=== PATIENT | female | born 1985 | race Caucasian/White ===

== ENCOUNTER 2017-07-31 12:27 | Emergency (ER) | payer BC ==
[~2017-07-31] VITALS: Ht 172.7 cm; Wt 78.5 kg
[~2017-07-31 12:27] MED LIST: AZITHROMYCIN250 MG PO; IBUPROFEN IB200 MG PO; NAPROSYN500 MG PO; NORCO 5-325 TA1 EACH PO; POTASSIUM CHLO20 ME1 PO; TYLENOL325 MG PO
[2017-07-31] MEDS ORDERED: KEFLEX500 MG PO (13:59)
[2017-07-31] MEDS ORDERED: NORCO 10-325 T1 EACH PO (13:59)
== END 2017-07-31 14:18 | disposition home or self-care (01) ==
LOC: ED 12:27
PROC: 2W3CX1Z Immobilization of Right Lower Arm using Splint (ICD-10-PCS; principal; 2017-07-31)
DX: S62.304A Unspecified fracture of fourth metacarpal bone, right hand, initial encounter for closed fracture (principal); S01.511A Laceration without foreign body of lip, initial encounter; F17.200 Nicotine dependence, unspecified, uncomplicated; Z98.84 Bariatric surgery status; Z98.890 Other specified postprocedural states; V89.2XXA Person injured in unspecified motor-vehicle accident, traffic, initial encounter
CPT/HCPCS: 29125; 73130; 90471; 90715; 99283

== ENCOUNTER 2017-08-10 09:05 | Day surgery (SDC) | payer BC ==
[~2017-08-10] VITALS: Ht 172.7 cm; Wt 78.6 kg
[~2017-08-10 09:05] MED LIST changes: +KEFLEX500 MG PO; +NORCO 10-325 T1 EACH PO
--- NOTE | 2017-08-10 11:34 | NUR ---
08/10/17 1134 Irma Whyte 1125 PT REPORTING 8/10 PAIN ,MEDICATION GIVEN PER EMAR. 1132 PT REPORTING NO CHANGE IN PAIN. MEDICAIOTN GIVEN PER EMAR.
--- NOTE | 2017-08-10 13:26 | NUR ---
1010 AMB IN HALLWAY, VOIDS QS. RATES PAIN AT 5/10 STATES THIS IS ACCEPTABLE AND DOESNT WANT PAIN MEDICINE. DENIES NAUSEA. ATE CRACKERS AND WATER. WANTS TO GO HOME.
--- NOTE | 2017-08-11 07:58 | OR ---
[facility] [address] [place] [address] Signed DATE OF OPERATION: 08/10/2017 SURGEON: Solange Lane MD PREOPERATIVE DIAGNOSIS: Right fourth metacarpal fracture, comminuted. POSTOPERATIVE DIAGNOSIS: Right fourth metacarpal fracture, comminuted. PROCEDURE PERFORMED: Open reduction and internal fixation, right 4th metacarpal. ANESTHESIA: General. SURGEON: Solange Lane MD SECURITY GUARD: 1. Kellie Saez PA-C. 2. SELINA Mcdonald. Kellie was present for the entire surgery and was critical for positioning, wound retraction and closure as well as cast application. TOURNIQUET TIME: Approximately 40 minutes. IMPLANTS: 1.5 mm Synthes titanium Y-plate with nine screws. BRIEF HISTORY: Nasim is a 31-year-old female, who suffered a fracture of her right hand. She had a comminuted fracture with large butterfly fragment that was displaced. Risks and benefits of operative were discussed with her and she elected to proceed. DESCRIPTION OF PROCEDURE: Once consent was obtained, she was taken to operating room. After adequate anesthesia, she was placed on operating room table. All downside pressure points well-padded. The right arm was placed in well-padded proximal arm tourniquet, prepped and draped in a Electronically Signed By: SOLANGE LANE MD 08/11/17 0758 PATIENT NAME: NASIM PATRICK CEDAR BLUFF OPERATIVE REPORT DATE OF : 85 PHYSICIAN: SOLANGE LANE MD REPORT #: [id number] REPORT IS CONFIDENTIAL AND NOT TO BE RELEASED WITHOUT AUTHORIZATION [facility] [address] [place], [place] [address] Signed standard sterile fashion and exsanguinated using Esmarch bandage. Tourniquet was inflated to 200 mmHg. The fracture was approached dorsally through a 2.5 inch incision and taken through skin subcutaneous tissue. The extensor tendons were mobilized, retracted, and protected. The fracture was easily identified. The periosteum was opened longitudinally and peeled off the metacarpal. The butterfly fragment was reduced and held with 1.2 K-wire. The remaining fracture was then reduced and held in position. Rotation was checked and found to be satisfactory. The Y-plate was then placed and centered using image intensifier. Two screws were placed to hold it in position. Again, the position alignment was checked and found to be good. The remaining screws were drilled and appropriate length screws were placed. Two inter frag screws were placed through the butterfly fracture in the midportion. The K-wire was then removed. Final radiograph showed the fracture to be well-reduced and the screw length is appropriate. The wound was copiously irrigated with antibiotic solution. The periosteum was then closed carefully over the top of the plate using 3-0 Monocryl. The vincula were repaired using 3-0 Monocryl in the subcutaneous tissue with 3-0 Monocryl. The skin was closed with 3-0 Prolene and Steri-Strips. Dressed with Xeroform, 4 x 8 and a boxer splint. She tolerated the procedure well. All sponge, needle, and instrument counts were correct. Solange Lane MD BA/MODL /[id number] Electronically Signed By: SOLANGE LANE MD 08/11/17 0758 PATIENT NAME: CELINANASIM LEE OPERATIVE REPORT DATE OF : 85 PHYSICIAN: SOLANGE LANE MD REPORT #: [id number] REPORT IS CONFIDENTIAL AND NOT TO BE RELEASED WITHOUT AUTHORIZATION
== END 2017-08-10 13:20 | disposition home or self-care (01) ==
LOC: DS 09:05 → OPS 09:05 → DS 12:45 → OPS 13:20
PROVIDERS: Specialist
PROC: 0PSP04Z Reposition Right Metacarpal with Internal Fixation Device, Open Approach (ICD-10-PCS; principal; 2017-08-10 12:45)
DX: S62.324A Displaced fracture of shaft of fourth metacarpal bone, right hand, initial encounter for closed fracture (principal); F17.210 Nicotine dependence, cigarettes, uncomplicated; Z98.84 Bariatric surgery status; Z98.890 Other specified postprocedural states; V89.2XXA Person injured in unspecified motor-vehicle accident, traffic, initial encounter
CPT/HCPCS: 01830; 64415; 73120; 76942; C1713; J0330; J0690; J0735; J1100; J1885; J2250; J2405; J2704; J2765; J3010; J7120

== ENCOUNTER 2017-10-09 10:36 | Inpatient (IN) | payer BC ==
[~2017-10-09] VITALS: Ht 172.7 cm; Wt 75.3 kg
[2017-10-09] MEDS ORDERED: IBUPROFEN800 MG PO (10:52)
[2017-10-09] MEDS ORDERED: ALEVE220 MG PO (17:01)
--- NOTE | 2017-10-10 10:48 | CONS ---
[facility] [address] [place], [place] [address] Signed DATE OF CONSULTATION: 10/09/2017 REQUESTING PHYSICIAN: Fausto Murillo MD PROBLEM: Melena, history of Elaine-en-Y gastric bypass. 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 She presented to the emergency room with at least 48 hours of melena. She is found to have a hematocrit of 24 with subsequent hematocrit of 17. She was admitted by Dr. Murillo and has received one packed red cell unit with nearly the second unit infusing. Consultation is made for consideration of source for gastrointestinal bleeding. She has had melena for about 2 days in aggregate. She has had no hematemesis. Notably, she had a GI bleed of a similar type about 6 years ago, treated at [facility] in [facility]. 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 She has maintained durable weight loss since that time. Her mother, who accompanies her has had gastric bypass as well. Nine weeks ago with treatment of her right metacarpal fracture, she has been taking ibuprofen on a rather steady basis at least 800 mg a day for the past 3 weeks. She has had no hematemesis associated with this, only dark black stool per rectum. She was noted to be tachycardic upon her initial evaluation in the emergency room, but with fluid resuscitation and transfusion therapy, much more normal at this point with a heart rate of 81 and blood pressure is 120 systolic. Risks factors for her possible peptic bleeding include smoking at least sma-[id number]-[id number] of cigarettes a day, occasional alcohol use (not daily), And of course, Motrin that she has been taking. PAST MEDICAL HISTORY: Significant for gastric bypass with Elaine-en-Y technique, age 17 and prior ulcer as described. ALLERGIES: She has no known drug allergies. MEDICATIONS: Electronically Signed By: JILLIAN MONTES DE OCA MD 10/10/17 1048 PATIENT NAME: NASIM PATRICK CONSULTATION DATE OF : 85 PHYSICIAN: JILLIAN MONTES DE OCA MD REPORT #: [id number] REPORT IS CONFIDENTIAL AND NOT TO BE RELEASED WITHOUT AUTHORIZATION [address] [address] Signed Her only medications at admission include ibuprofen. REVIEW OF SYSTEMS: She denies any severe abdominal pain at this time, but has felt some vague upper abdominal symptoms in the past few weeks. She has had no dysphagia or hematemesis. SOCIAL HISTORY: She is accompanied by her mother. She works at [employer] as described. She is a cabinetmaker there. PHYSICAL EXAMINATION: GENERAL: A pleasant white woman, who does not appear to be toxic or particularly troubled at this time. VITAL SIGNS: Pulse is now 80, blood pressure is 111/61. HEENT: Trachea is midline. She has no hoarseness. CHEST: Clear. HEART: Regular without murmur. ABDOMEN: Soft and nondistended. There is no sign of ascites, tenderness, or mass. EXTREMITIES: Show no clubbing, cyanosis, or edema. LABORATORY DATA: Show a normal Chem profile. Creatinine is 0.64. White count is 5.5. Initial hematocrit 24.7. Subsequent hematocrit is 17. Half of 1 unit red cells is infusing. ASSESSMENT: She likely has developed an ulcer of a gastric pouch remnant or gastrojejunal anastomosis (a Elaine-en-Y bypass is her operation as I think it is). Whether or not she has ongoing bleeding is uncertain. The chronicity of her bleeding has allowed her hematocrit to drift as low as it is. She has had nearly 2 units of packed red cells and has responded well to that and IV fluids. I believe it is reasonable to consider upper endoscopy promptly at this point. If there is ongoing bleeding, efforts at control to include clipping or thermal methods would be appropriate or sclerotherapy or injection therapy. The risks of bleeding, infection, perforation, and of course failure to identify a bleeding source were reviewed as well. With use of illustrations regarding her presumed gastric anatomy, there is always some chance the bleeding is from the excluded stomach or duodenum, but this is not known at this time. Such areas of exclusion are notoriously difficult to identify without elaborate measures. For now, we will plan for upper endoscopy reasonably soon. We use anesthesia in assistance in case elaborate control measures are necessary. Mother and the patient herself understand the risks, we have described and wished to proceed. Electronically Signed By: JILLIAN MONTES DE OCA MD 10/10/17 1048 PATIENT NAME: NASIM PATRICK CONSULTATION DATE OF : 85 PHYSICIAN: JILLIAN MONTES DE OCA MD REPORT #: [id number] REPORT IS CONFIDENTIAL AND NOT TO BE RELEASED WITHOUT AUTHORIZATION [address] [address] Signed Jillian Montes De Oca MD JM/MODL /[id number] cc: Fausto Murillo MD Electronically Signed By: JILLIAN MONTES DE OCA MD 10/10/17 1048 PATIENT NAME: NASIM PATRICK BRUNILDA CONSULTATION DATE OF : 85 PHYSICIAN: JILLIAN MONTES DE OCA MD REPORT #: [id number] REPORT IS CONFIDENTIAL AND NOT TO BE RELEASED WITHOUT AUTHORIZATION
--- NOTE | 2017-10-10 10:48 | OR ---
[facility] [address] [place], [place] [address] Signed DATE OF OPERATION: 10/09/2017 SURGEON: Jillian Montes De Oca MD PREOPERATIVE DIAGNOSES: 1. Melena. 2. History of Elaine-en-Y gastric bypass age 17, history of ulcer. 3. Recent persistent nonsteroidal use (Motrin 800 mg daily). POSTOPERATIVE DIAGNOSIS: Bleeding ulcer at gastrojejunal anastomosis. PROCEDURE: Esophagogastroduodenoscopy with control of bleeding (hemoclips x2). ANESTHESIA: Intravenous sedation, propofol infusion, Fallon Ibarra CRNA. INDICATION: This 32-year-old white woman is admitted by Dr. Murillo to the hospital with melena. Her initial hematocrit was 24, subsequent 17. She has undergone 2 units of packed red cell infusion and fluid resuscitation and her heart rate is now down from 124 to 81 and her blood pressure remains at 111 systolic. She looks quite good at this point. It is notable she had a Ealine-en-Y gastric bypass at age 17 and she has maintained good weight loss with it. She does smoke daily, has occasional alcohol use and has been taking Motrin 800 mg daily, sometimes more in response to recent wrist surgery that she has had several weeks ago. She did have a gastrointestinal bleed managed at [facility] in [facility] 6 years ago. She is admitted at this time to undergo upper endoscopy and control of bleeding as appropriate. She understands as does her mother, who attends with her. There is risk of bleeding, infection, recurrent bleeding, persistent bleeding, and bleeding that may be located elsewhere requiring other evaluation or treatment. Understands that she wished to proceed. FINDINGS: She did have a bleeding ulcer at the gastrojejunal anastomosis. It did have oozing, but no spurting. It was controlled with 2 hemoclips. The gastric remnant itself looked reasonably healthy. I saw no sign of other ulcer. The esophagus was normal. The jejunal limb was otherwise normal also. DESCRIPTION OF PROCEDURE: Electronically Signed By: JILLIAN MONTES DE OCA MD 10/10/17 1048 PATIENT NAME: NASIM PATRICK OPERATIVE REPORT DATE OF : 85 PHYSICIAN: JILLIAN MONTES DE OCA MD REPORT #: [id number] REPORT IS CONFIDENTIAL AND NOT TO BE RELEASED WITHOUT AUTHORIZATION [facility] [address] [place], [place] [address] Signed The patient was brought to the endoscopy suite and placed in lateral decubitus position, given topical Hurricaine spray hypopharyngeal anesthesia. She was given intravenous sedation with propofol infusion. She did have a high requirement for the propofol. A bite block was placed. An Olympus video upper endoscope passed in the hypopharynx. The vocal cords and hypopharynx were normal. The scope was advanced to the esophagus without problem. It was normal. The scope was allowed to enter the gastric remnant, which showed no sign of clot within it. The gastrojejunal outlet was some blood and the scope passed to the Elaine limb, which appeared normal. The scope was carefully withdrawn and noted was an ulcer at the gastrojejunal anastomosis, which had an oozing, but not spurting of blood. Irrigation was undertaken. It was persistently bleeding and on that basis, hemoclips twice under direct visualization allowing for cessation of any bleeding. Irrigation was undertaken. There was no sign of further bleeding. The scope was carefully withdrawn and removed, and the patient was taken to the recovery room in good condition. 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 PLAN: We will initiate Carafate, continue with PPI and additional blood as needed. Careful monitoring would be undertaken. We are hopeful and optimistic that she will not need any further intervention. MD DEBORAH Koroma/ELAINEL /[id number] cc: Fausto Murillo MD Electronically Signed By: JILLIAN MONTES DE OCA MD 10/10/17 1048 PATIENT NAME: NASIM PATRICK OPERATIVE REPORT DATE OF : 85 PHYSICIAN: JILLIAN MONTES DE OCA MD REPORT #: [id number] REPORT IS CONFIDENTIAL AND NOT TO BE RELEASED WITHOUT AUTHORIZATION
[2017-10-11] MEDS ORDERED: SUCRALFATE1 GM PO (12:12)
[2017-10-11] MEDS ORDERED: FERROUS SULFAT325 MG PO (12:12)
[2017-10-11] MEDS ORDERED: OMEPRAZOLE MAGN20 MG PO (12:12)
[2017-10-11] MEDS ORDERED: VITAMIN B-122000 MC1 PO (12:12)
== END 2017-10-11 11:07 | disposition left against medical advice (07) | DRG 378 ==
LOC: ED 10:36 → CCU 12:15 → MS 10-10 13:20
PROVIDERS: Surgery; ADMIT Internal Medicine
PROC: 30233N1 Transfusion of Nonautologous Red Blood Cells into Peripheral Vein, Percutaneous Approach (ICD-10-PCS; 2017-10-09)
PROC: 0W3P8ZZ Control Bleeding in Gastrointestinal Tract, Via Natural or Artificial Opening Endoscopic (ICD-10-PCS; principal; 2017-10-09 14:38)
DX: K25.4 Chronic or unspecified gastric ulcer with hemorrhage (principal); D62 Acute posthemorrhagic anemia; E53.8 Deficiency of other specified B group vitamins; Z98.84 Bariatric surgery status; Z79.1 Long term (current) use of non-steroidal anti-inflammatories (NSAID); F17.210 Nicotine dependence, cigarettes, uncomplicated
CPT/HCPCS: 36415; 36430; 80053; 82607; 82728; 82746; 83540; 83735; 84466; 85014; 85018; 85025; 85045; 85610; 86850; 86900; 86901; 86920; 96361; 96365; 96375; 99285; J0780; J2405; J2550; J2704; J7030; J7120; P9016

== ENCOUNTER 2020-11-20 18:43 | Emergency (ER) | payer SELFPAY ==
[~2020-11-20] VITALS: Ht 172.7 cm; Wt 80.0 kg
[~2020-11-20 18:43] MED LIST changes: +ALEVE220 MG PO; +FERROUS SULFAT325 MG PO; +HYDROXYZINE HCL25 MG PO; +IBUPROFEN800 MG PO; +OMEPRAZOLE MAGN20 MG PO; +SUCRALFATE1 GM PO; +VITAMIN B-122000 MC1 PO
[2020-11-20] MEDS ORDERED: HYDROXYZINE HCL25 MG PO (22:47)
== END 2020-11-20 23:37 | disposition home or self-care (01) ==
LOC: ED 18:43
DX: F10.239 Alcohol dependence with withdrawal, unspecified (principal); F17.200 Nicotine dependence, unspecified, uncomplicated
CPT/HCPCS: 73610; 99284-25

== ENCOUNTER 2020-11-27 10:48 | Emergency (ER) | payer SELFPAY ==
[~2020-11-27] VITALS: Ht 172.7 cm; Wt 81.6 kg
--- OUTSIDE RECORDS SUMMARY | 2020-11-27 10:54 | XMS ---
PreManage Notification: NASIM PATRICK Security Laundry Bag Punch Operator Events No recent Security Events currently on file CRITERIA MET - [facility] - 2 Visits in 30 Days CARE PROVIDERS DREA AGUIRRE Physician Cafe Or Restaurant Manager Current PHONE: [phone] Gertrude has no Care Guidelines for this patient. Itz VISIT COUNT (12 MO.) [address] TOTAL 5 NOTE: Visits indicate total known visits. ED/C VISIT TRACKING (12 MO.) 11/27/2020 10:48 [facility] TYPE: Emergency COMPLAINT: - R FOOT BRUISED/SWOLLEN 11/20/2020 18:43 [facility] TYPE: Emergency COMPLAINT: - RAPID HEART RATE DIAGNOSES: - Nicotine dependence, unspecified, uncomplicated - Alcohol dependence with withdrawal, unspecified 08/20/2020 16:[address] [facility] [place] TYPE: Emergency COMPLAINT: - FALL DIAGNOSES: - Nicotine dependence, unspecified, uncomplicated - Anxiety disorder, unspecified 06/15/2020 06:21 [facility] [place] TYPE: Emergency DIAGNOSES: - OVERDOSE - Poisoning by unspecified narcotics, accidental (unintentional), initial encounter 03/24/2020 06:23 [facility] [place] TYPE: Emergency DIAGNOSES: - NAUSEA - Nausea INPATIENT VISIT TRACKING (12 MO.) No inpatient visits to display in this time frame [email or web address]
== END 2020-11-27 12:31 | disposition home or self-care (01) ==
LOC: ED 10:48
DX: S93.401A Sprain of unspecified ligament of right ankle, initial encounter (principal); X58.XXXA Exposure to other specified factors, initial encounter; F17.200 Nicotine dependence, unspecified, uncomplicated
CPT/HCPCS: 73630; 99283-25

== ENCOUNTER 2021-05-07 16:35 | Emergency (ER) | payer SELFPAY ==
[~2021-05-07] VITALS: Ht 172.7 cm; Wt 81.7 kg
[2021-05-07] MEDS ORDERED: ONDANSETRON ODT8 MG PO (22:46)
== END 2021-05-07 23:22 | disposition home or self-care (01) ==
LOC: ED 16:35
DX: R11.2 Nausea with vomiting, unspecified (principal); Z20.822 Contact with and (suspected) exposure to COVID-19; F17.200 Nicotine dependence, unspecified, uncomplicated
CPT/HCPCS: 74177; 80053; 81001; 83735; 84703; 85025; 96375; 99284-25; C9803; J1200; J1790; J2405; J2550; J7030; Q9967; U0003

== ENCOUNTER 2022-06-25 23:38 | Emergency (ER) | payer BC ==
[~2022-06-25] VITALS: Ht 172.7 cm; Wt 68.4 kg
[~2022-06-25 23:38] MED LIST changes: +ONDANSETRON ODT8 MG PO
== END 2022-06-26 01:41 | disposition home or self-care (01) ==
LOC: ED 23:38
DX: R53.81 Other malaise (principal); F17.200 Nicotine dependence, unspecified, uncomplicated
CPT/HCPCS: 36415; 80053; 81001; 83735; 84703; 85025; 96374; 96375; 99283-25; A9270; J2405; J2550; J7040

== ENCOUNTER 2022-06-28 23:07 | Emergency (ER) | payer BC ==
[~2022-06-28] VITALS: Ht 172.7 cm; Wt 68.0 kg
--- OUTSIDE RECORDS SUMMARY | 2022-06-28 23:16 | XMS ---
PreManage Notification: NASIM PATRICK Security Hydraulic Press Tender Events No recent Security Events currently on file CRITERIA MET - [facility] - 2 Visits in 30 Days CARE PROVIDERS DREA AGUIRRE Physician Pneudraulic Systems Mechanic Current PHONE: Unknown Gertrude has no Care Guidelines for this patient. ERick VISIT COUNT (12 MO.) 2 [facility] TOTAL 2 NOTE: Visits indicate total known visits. ED/UCC VISIT TRACKING (12 MO.) 06/28/2022 23:08 [facility] TYPE: Emergency COMPLAINT: - POLICE HOLD AMS 06/25/2022 23:40 [facility] TYPE: Emergency COMPLAINT: - HEADACHE, FATIGUE, WEIGHT LOSS DIAGNOSES: - Other malaise - Nicotine dependence, unspecified, uncomplicated - Other fatigue INPATIENT VISIT TRACKING (12 MO.) No inpatient visits to display in this time frame [email or web address]
[2022-06-29] MEDS ORDERED: METHADONE HCL5 MG (14:09)
== END 2022-06-29 09:45 | disposition home or self-care (01) ==
LOC: ED 23:07
DX: F23 Brief psychotic disorder (principal); F17.200 Nicotine dependence, unspecified, uncomplicated; Z79.899 Other long term (current) drug therapy
CPT/HCPCS: 36415; 80053; 81001; 84443; 84703; 85025; 99284; G0480

== ENCOUNTER 2022-06-29 13:48 | Emergency (ER) | payer BC ==
[~2022-06-29] VITALS: Ht 172.7 cm; Wt 68.0 kg
--- OUTSIDE RECORDS SUMMARY | 2022-06-29 13:51 | XMS ---
PreManage Notification: NASIM PATRICK Security High [employer] Admissions Representative Events No recent Security Events currently on file CRITERIA MET - [facility] - 2 Visits in 30 Days CARE PROVIDERS DREA AGUIRRE Physician Tar Worker Current PHONE: Unknown Gertrude has no Care Guidelines for this patient. ERick VISIT COUNT (12 MO.) 3 [facility] TOTAL 3 NOTE: Visits indicate total known visits. ED/UCC VISIT TRACKING (12 MO.) 06/29/2022 13:49 [facility] TYPE: Emergency COMPLAINT: - MEDICAL CLEARANCE 06/28/2022 23:08 [facility] TYPE: Emergency COMPLAINT: - POLICE HOLD AMS 06/25/2022 23:40 [facility] TYPE: Emergency COMPLAINT: - HEADACHE, FATIGUE, WEIGHT LOSS DIAGNOSES: - Other malaise - Nicotine dependence, unspecified, uncomplicated - Other fatigue INPATIENT VISIT TRACKING (12 MO.) No inpatient visits to display in this time frame [email or web address]
[2022-06-29] MEDS ORDERED: METHADONE HCL5 MG (14:09)
[2022-07-02] MEDS ORDERED: ZYPREXA10 MG PO (13:22)
== END 2022-07-02 13:27 | disposition home or self-care (01) ==
LOC: ED 13:48
DX: F29 Unspecified psychosis not due to a substance or known physiological condition (principal); F17.200 Nicotine dependence, unspecified, uncomplicated; Z79.899 Other long term (current) drug therapy
CPT/HCPCS: 36415; 70450; 80053; 84443; 84703; 85025; 87502; A9270; C9803; G0480; J1200; J1630; J3486; U0003